=== PATIENT | male | born 1960 | race Caucasian/White ===

== ENCOUNTER 2019-04-14 01:42 | Emergency (ER) | payer BC ==
--- NOTE | 2019-04-14 01:53 | PDOC ---
History of Present Illness - General History Source: Patient Exam Limitations: No Limitations - History of Present Illness Initial Comments: 04/14/19 01:52 HPI: 59yo M with no PMH presenting s/p mechanical fall on two steps with inability to bend right leg at the knee or bear weight afterwards. Tried taking tylenol for the pain - denies significant pain at this time, but is unable to extend his right leg at the knee. Reports that he was walking down the stairs and slipped on a cleaning compound on them and landed on top of his R leg. Denies any CP/SOB/Palpitations/lightheadedness/cough/fevers/chills/recent illness. Did not lose consciousness or hit his head - not on any anticoagulants. All: PCN > anaphylaxis Meds: denies PMH: denies PSH: denies <Pernell Saab - Last Filed: 04/14/19 06:25> <Cody Kingsley - Last Filed: 04/14/19 07:16> - General Stated Complaint: FALL Time Seen by Provider: 04/14/19 01:52 Past History - Travel Traveled outside of the country in the last 30 days: No Close contact w/someone who was outside of country & ill: No <Pernell Saab - Last Filed: 04/14/19 06:25> <Cody Kingsley - Last Filed: 04/14/19 07:16> - Past Medical History Allergies/Adverse Reactions: Allergies Allergy/AdvReac Type Severity Reaction Status Date / Time Penicillins Allergy Mild Verified 04/14/19 04:32 Review of Systems - Review of Systems Able to Perform ROS?: Yes Is the patient limited Swedish proficient: Yes Constitutional: No: Chills, Diaphoresis, Fever HEENTM: No: Blurred Vision, Recent change in vision, Nose Congestion, Throat Swelling Respiratory: No: Cough, Shortness of Breath, Stridor, Wheezing Cardiac (ROS): No: Chest Pain, Edema, Irregular Heart Rate, Palpitations, Syncope, Chest Tightness ABD/GI: No: Constipated, Diarrhea, Nausea, Vomiting : No: Burning, Dysuria, Pain Musculoskeletal: Yes: See HPI, Joint Pain, Joint Swelling, Muscle Weakness. No : Back Pain Integumentary: No: Pruritus, Rash Neurological: Yes: See HPI. No: Headache, Numbness, Tingling, Weakness Psychiatric: No: Stressors, Emotional Problems, Change in Appetite Endocrine: No: Symptoms Reported Hematologic/Lymphatic: No: Symptoms Reported, Anemia, Easy Bleeding, Easy Bruising All Other Systems: Reviewed and Negative <Pernell Saab - Last Filed: 04/14/19 06:25> *Physical Exam - Physical Exam Comments: 04/14/19 02:19 Vitals reviewed, AFVSS WDWN man, no acute distress, sitting in hospital bed MMM, EOMI, trachea midline, normal morphologies, atraumatic RRR, nl s1s2, no murmurs CTABL, normal WOB, no wheezes / rales / rhonchi Soft, nontender nondistended WWP, no clubbing / cyanosis / edema Pt with patella in proper position, effusion overlying R knee, non-tender on palpation, gap palpated above the patella, no ecchymosis or skin lesions / rash , patient unable to range the right knee - uses hands to lift lower leg into the bed, tenderness superior to patella, palpable defect superior to patella, swelling of the knee, no signs of acute fracture, compartments soft 2+ PT and radial pulses Alert and oriented, CN grossly intact, normal sensation on bilateral lower extremities <Pernell Saab - Last Filed: 04/14/19 06:25> - Vital Signs Last Vital Signs Temp Pulse Resp BP Pulse Ox 98.0 F 63 16 129/81 95 04/14/19 01:55 04/14/19 06:50 04/14/19 06:50 04/14/19 06:50 04/14/19 06:50 <Cody Kingsley - Last Filed: 04/14/19 07:16> ED Treatment Course - Medications Given in the ED: ED Medications Discontinued Medications Generic Name Dose Route Start Last Admin Trade Name Jeffryq PRN Reason Stop Dose Admin Lidocaine 1 patch 04/14/19 04:24 04/14/19 04:40 Lidoderm Patch - TP 04/14/19 04:25 1 patch ONCE ONE Administration Morphine Sulfate 2 mg 04/14/19 04:24 04/14/19 04:40 Morphine Injection - IM 04/14/19 04:25 2 mg ONCE ONE Administration <Cody Kingsley - Last Filed: 04/14/19 07:16> Medical Decision Making - Medical Decision Making 04/14/19 02:22 59yo M with no PMH presenting s/p mechanical fall on two steps without LOC with suspected quadraceps tendon rupture. History largely unremarkable. Exam notable for tenderness superior to patella, defect palpable superior to patella, swelling / effusion overlying the knee, neuromuscularly intact. C/w isolated quadriceps tendon rupture, less likely dislocation given physical exam. Will require immobilization and orthopaedic surgery evaluation as an outpatient pending imaging. -CT R knee to mid-femur 04/14/19 04:37 -Patient with continued quadriceps tendon, ordered for morphine IM and lidoderm patch -CT pending official read, plan for knee immobilizer and ortho follow-up 04/14/19 05:02 -CT with surrounding fatty tissue, c/w quadriceps tendon rupture vs tear, stranding around patellar tendon without clear significance -Call placed to orthopaedic surgery (Moisés/Reema/Dave) 04/14/19 06:25 -Followup call placed to ortho service -Plan for MRI vs discharge with followup - discharge paperwork complete 04/14/19 07:00 Signed out to AM team <Pernell Saab - Last Filed: 04/14/19 06:25> Discharge - Discharge Information Problems reviewed: Yes - Admission No <Pernell Saab - Last Filed: 04/14/19 06:25> <Cody Kingsley - Last Filed: 04/14/19 07:16> - Discharge Information Clinical Impression/Diagnosis: Quadriceps tendon rupture Qualifiers: Encounter type: initial encounter Laterality: right Qualified Code(s): S76.111A - Strain of right quadriceps muscle, fascia and tendon, initial encounter Condition: Stable Disposition: HOME - Follow up/Referral Referrals: Foreign Curiel MD [Staff Physician] - Mendoza Leyva DO [Staff Physician] - Bill Benavidez MD [Staff Physician] - - Patient Discharge Instructions Additional Instructions: Continue to rest your leg, elevate it, and use ice for 20 minutes at a time then 20 minutes without ice. Take over the counter pain medication for your pain as directed on the bottle (Tylenol, Ibuprofen, etc.). DO NOT put weight on the affected leg. It is imperative that you follow up with orthopaedic surgery for further evaluation. Please call the provided surgeon and arrange for followup on Monday morning. You should be seen within the next week. This is extremely important for your recovery. - Dr. Benavidez (Orthopedics) will see your in his office on Monday04/15/19; please call the office at the number provided [phone] on the morning of the . Please return to the ED for any new or concerning symptoms. Contine descansando araujo pierna, levntela y use hielo morgan 20 minutos a la vez y luego 20 minutos sin hielo. [place] medicamentos de venta nevin para el dolor segn lo indicado en el frasco (Tylenol, Ibuprofeno, etc.). NO ponga peso sobre la pierna afectada. Es imperativo que realice un seguimiento con ciruga ortopdica para katie evaluacin adicional. Llame al cirujano proporcionado y zander arreglos para el seguimiento el por la maana. Debera verte dentro de la prxima semana. [place] es extremadamente importante para araujo recuperacin. - El Dr. Benavidez ([facility]) lo anh en araujo oficina el 15/04/19; por favor llame a la oficina al nmero provisto [phone] en la maana del . Regrese al servicio de urgencias por cualquier sntoma nuevo o preocupante. - Post Discharge Activity Work/Back to School Note: Back to Work
[2019-04-14 02:36] VITALS: TEMP 98; BMI 31.6
[2019-04-14] MEDS ORDERED: morphine CARPU-JECT 2 MG/1 ML DISP.SYRIN IM ONE (04:24)
[2019-04-14] MEDS ORDERED: LIDOCAINE 5% TOPICAL PATCH TP ONE (04:24)
[2019-04-14] MEDS ORDERED: LIDOCAINE 5% TOPICAL PATCH ONE (04:33)
[2019-04-14] MEDS ORDERED: MORPHINE SULFATE 2 MG/ML VIAL ONE (04:33)
--- NOTE | 2019-04-14 05:07 | PDOC ---
Attending Attestation - Resident Resident Name: Pernell Saab - ED Attending Attestation I have performed the following: I have examined & evaluated the patient, The case was reviewed & discussed with the resident, I agree w/resident's findings & plan - HPI HPI: 04/14/19 05:03 PT SLIPPED AND FELL AND NOW HE CANNOT WALK. Pt has a defect over the patella; likely quadricpes tendon rupture. - Physicial Exam PE: 04/14/19 05:04 Agree with resident exam. Pt has good pulses in bilat legs/popliteal and PT/DP Normal color of skin Pt has some swelling around the left knee; more at the cranial aspect of the knee. Pt has normal rest of exam. He cannot extend his lower leg, and callot lift/ extend his leg from the knee. - Medical Decision Making 04/14/19 05:00 Patient Name: DAVIN MYLES THIS IS A PRELIMINARY REPORT FROM [facility] DATE OF SERVICE: 2019-04-14 03:00:43 IMAGES: [id number] EXAM: CT of the right knee HISTORY: Tendon rupture COMPARISON: None. FINDINGS: There is no fracture or dislocation of the right knee. There is stranding and fatty infiltration around the quadriceps tendon. This could represent quadriceps tendon tear or rupture. However tendon rupture is best evaluated with MRI. There is also some stranding around the patellar tendon though I am not certain that the patellar tendon is actually injured. Incidental note is made of what is probably a fibrous cortical defect defect of the proximal right 04/14/19 05:07 Pt will be placed in a knee immobilizer; he was treated wioth pain meds. We will contact the ortho docs educational aid. Pt will follow likely in the oupatient setting. 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 04/14/19 05:40 Pt will be signed out to the day; we will get an MRI in the AM and then get ortho involved.
[2019-04-14 06:51] VITALS: BP 129/81; PULSE 63
[2019-04-14] MEDS ORDERED: LIDOCAINE PATCH REMOVAL MC SCH (22:00)
== END 2019-04-14 07:34 | disposition home or self-care (01) ==
LOC: JER 01:42
PROC: 2W3QXYZ Immobilization of Right Lower Leg using Other Device (ICD-10-PCS; principal; 2019-04-14)
DX: S76.111A Strain of right quadriceps muscle, fascia and tendon, initial encounter (principal); W10.8XXA Fall (on) (from) other stairs and steps, initial encounter; Y93.89 Activity, other specified; Y92.89 Other specified places as the place of occurrence of the external cause; Y99.8 Other external cause status; Z88.0 Allergy status to penicillin
CPT/HCPCS: 73700-TC-RT; 99282-25

== ENCOUNTER 2019-04-25 09:22 | Day surgery (SDC) | payer OTHER, BC ==
[2019-04-22 13:24] VITALS: BMI 31.6
--- NOTE | 2019-04-25 09:07 | OP ---
Operative Note - Note: Operative Date: 04/25/19 Pre-Operative Diagnosis: Quadricep tendon tear Operation: Quadricep tendon repair Post-Operative Diagnosis: Same as Pre-op Surgeon: Bill Benavidez Aircraft [employer] Dispatcher: Kelly Orr Anesthesia: General Operative Report Dictated: Yes
[2019-04-25] MEDS ORDERED: MIDAZOLAM HCL 2 MG/2 ML SINGLE DOSE VIAL ONE (11:30)
[2019-04-25] MEDS ORDERED: BUPIVACAINE LIPOSOME/PF (EXPAREL) 266 MG/20 ML VIAL ONE (11:30)
[2019-04-25] MEDS ORDERED: ACETAMINOPHEN 325 MG TABLET (FP) PO PRN (12:30)
[2019-04-25] MEDS ORDERED: LACTATED RINGERS SOLUTION 1,000 ML IV SCH (12:30)
[2019-04-25] MEDS ORDERED: ONDANSETRON 4 MG/2 ML VIAL IVPUSH PRN (12:30)
[2019-04-25] MEDS ORDERED: oxyCODONE HCL 5 MG TABLET PO PRN (12:30)
[2019-04-25] MEDS ORDERED: PROPOFOL 20 ML ONE ×2 (13:58)
[2019-04-25] MEDS ORDERED: CLINDAMYCIN PHOSPHATE 600 MG/4 ML VIAL ONE (14:03)
--- NOTE | 2019-04-25 16:46 | OP ---
DATE OF OPERATION: 04/25/2019 PREOPERATIVE DIAGNOSIS: Right knee quadriceps tendon rupture. POSTOPERATIVE DIAGNOSIS: Right knee quadriceps tendon rupture. PROCEDURE: Right quadriceps tendon repair. SURGEON: Bill Benavidez MD CHOKER SETTER: Kelly Orr, physician document control assistant, whose skillful assistance was necessary for the safe and performance of this procedure. Ms. Orr was able to provide positioning, traction, assist in suture passage, anchor fixation. ANESTHESIA: Spinal plus regional. POSTOPERATIVE CONDITION: Stable. COMPLICATIONS: None. IMPLANTS: [employer] Q-Fix anchors x2. INDICATIONS: This is a pleasant 59-year-old gentleman who had suffered a fall at work, injuring his quadriceps tendon. Treatment options were discussed including nonoperative care with long-term loss of function versus operative care which would help restore quadriceps function. Operative risks were reviewed in detail including bleeding, infection, neurovascular injury, need for further surgery, postoperative pain and stiffness, failure to heal or re-rupture of the quadriceps tendon. We discussed medical risks such as heart attack, stroke, DVT, PE, and . I discussed the use of perioperative antibiotic and DVT prophylaxis. I reviewed the postoperative rehabilitation protocol. I addressed all the patient's questions and concerns. He expressed understanding of the procedure. DESCRIPTION OF PROCEDURE: The patient was brought to the operating room where spinal anesthetic was administered. He previously had been given a block in the preoperative holding area. The right lower extremity was then prepped and draped in the usual sterile fashion. A preoperative dose of antibiotics was given and the usual timeout procedure was performed. An incision was now planned out over the proximal pole of the patella. It was carried down through skin and subcutaneous tissue. Electrocautery was used to maintain hemostasis. A large hematoma was then encountered. Deep to this, the quadriceps tendon was identified with a complete tear. The tear was retracted. Tear extended over the lateral and medial retinaculum. The hematoma was evacuated. The edges of the quadriceps tendon were debrided using a rongeur. The proximal pole of the patella was debrided with a rongeur, then electrocautery, followed by a high-speed bur down to bleeding bone. The retinaculum was now provisionally repaired by placing No. 1 Vicryl sutures in [id number] fashion without tying the sutures so they could be later closed. Two Q-Fix anchors were drilled into the patella, maintaining a finger on the articular surface to avoid any penetration during the drilling process. After drilling the 2 anchors and inserting them, excellent purchase was achieved. A free needle was now used to pass the sutures in a whipstitch fashion starting from lateral and proceeding all the way medial. After passing all sutures, they were sequentially tied, securing the quadriceps tendon firmly down to the patella. After this was tied, the knee was flexed up to 40 degrees comfortably without any tension on the repair. The previously passed retinacular sutures were then tied. Additional No. 1 Vicryls were used to reinforce the retinacular repair that there was a watertight seal. At this point subcutaneous tissue was repaired deeply using 0 Vicryl and subcutaneously using 2-0 Vicryl. The skin was closed with 3-0 nylon. Sterile dressing was applied. The patient was placed into a knee immobilizer. He was transferred to the recovery room in stable condition. Enrique SANTOS/[id number]
[2019-04-25 17:05] VITALS: TEMP 98.5
[2019-04-25 19:30] VITALS: BP 128/76; PULSE 84
== END 2019-04-25 19:30 | disposition home or self-care (01) ==
LOC: FASU 09:22
PROVIDERS: ATTEND Orthopaedic Surgery Sports Medicine
PROC: 0LQL0ZZ Repair Right Upper Leg Tendon, Open Approach (ICD-10-PCS; principal; 2019-04-25 14:09)
DX: S76.191A Other specified injury of right quadriceps muscle, fascia and tendon, initial encounter (principal); X58.XXXA Exposure to other specified factors, initial encounter; Y93.9 Activity, unspecified; Y92.9 Unspecified place or not applicable
CPT/HCPCS: 94760